=== PATIENT | female | born 1975 | race Two or more races ===

== ENCOUNTER 2020-11-18 13:30 | Outpatient (REF) | payer OTHER, SELFPAY ==
[2020-11-24 23:02] LABS: HPV mRNA E6/E7 rflx Not Detected (Not Detected)
== END 2020-11-18 13:31 | disposition home or self-care (01) ==
LOC: HO.LAB 13:30
PROVIDERS: PCP Nurse Practitioner; Visit Provider Obstetrics & Gynecology
DX: Z01.419 Encounter for gynecological examination (general) (routine) without abnormal findings (principal); D06.9 Carcinoma in situ of cervix, unspecified; E11.9 Type 2 diabetes mellitus without complications
CPT/HCPCS: 36415; 87624; 88142

== ENCOUNTER 2020-12-02 08:33 | Outpatient (REF) | payer OTHER, SELFPAY | END 2020-12-02 08:34 | disposition home or self-care (01) | LOC: HO.LAB 08:33 | PROVIDERS: Visit Provider Obstetrics & Gynecology | DX: Z01.419 Encounter for gynecological examination (general) (routine) without abnormal findings (principal); D06.9 Carcinoma in situ of cervix, unspecified | CPT/HCPCS: 57454; 88305 ==

== ENCOUNTER → 2020-12-22 11:23 | Outpatient (BNVA) | payer OTHER, SELFPAY | PROVIDERS: Visit Provider Obstetrics & Gynecology ==

== ENCOUNTER 2021-01-20 15:09 | Outpatient (REF) | payer OTHER, SELFPAY | END 2021-01-20 15:10 | disposition home or self-care (01) | LOC: HO.MAMMO 15:09 | PROVIDERS: Visit Provider Obstetrics & Gynecology | DX: Z13.89 Encounter for screening for other disorder (principal) ==

== ENCOUNTER 2021-11-21 13:24 | Outpatient (REF) | payer OTHER, SELFPAY ==
[2021-11-22 04:40] LABS: CT PCR NOT DETECTED (Not Detect.); NG PCR NOT DETECTED (Not Detect.)
[2021-11-22 13:04] LABS: BV Int Neg Control Negative (Negative); BV Int Pos Control Positive (Positive)
[2021-11-24 03:41] LABS: HPV mRNA E6/E7 rflx Not Detected (Not Detected)
== END 2021-11-21 13:25 | disposition home or self-care (01) ==
LOC: HO.LAB 13:24
PROVIDERS: Visit Provider Advanced Practice Midwife
DX: Z01.411 Encounter for gynecological examination (general) (routine) with abnormal findings (principal); Z11.51 Encounter for screening for human papillomavirus (HPV); D06.9 Carcinoma in situ of cervix, unspecified; B37.3 Candidiasis of vulva and vagina; N64.4 Mastodynia; Z20.2 Contact with and (suspected) exposure to infections with a predominantly sexual mode of transmission
CPT/HCPCS: 87480; 87491; 87510; 87591; 87624; 87660; 88142